=== PATIENT | female | born 1990 | race African-American/Black ===

== ENCOUNTER 2016-10-19 20:44 | Emergency (ER) | payer MEDICAID ==
--- NOTE | 2016-10-19 21:06 | NUR ---
LEFT IN THE MIDDLE OF TRIAGE AND STATED "I WILL F/U WITH A SPECIALIST TOMORROW".
== END 2016-10-19 21:20 | disposition left against medical advice (07) ==
LOC: ER 20:44
DX: Z53.21 Procedure and treatment not carried out due to patient leaving prior to being seen by health care provider (principal)